=== PATIENT | male | born 1955 | race African-American/Black ===

== ENCOUNTER 2016-06-05 09:40 | Outpatient (CLI) | payer MEDICARE, OTHER ==
[2016-06-05 12:25] LABS: #Basophils 0.1 thou/uL (0.0-0.2); #Eosinphils 0.2 thou/uL (0.0-0.7); #Lymphocytes 1.7 thou/uL (1.20-3.40); #Monocytes 0.7 thou/uL (0.11-0.59); #Neutrophils 7.4 thou/uL (1.40-6.50); %Basophils 1.3 % (0.0-1.0); %Eosinophils 2.2 % (0.0-10.0); %Lymphocytes 16.8 % (21.0-51.0); %Monocytes 7.2 % (0.0-10.0); Hematocrit 46.6 % (42.0-52.0); Mean Platelet Volume 5.8 fL (7.4-10.4); White Blood Cell (WBC) Count 10.2 thou/uL (4.8-10.8)
[2016-06-05 12:27] LABS: Bilirubin Negative (Negative); Blood, Urine Negative (Negative); Glucose, Urine (Dipstick) Negative (Negative); Ketone, Urine Negative (Negative); Nitrite Negative (Negative); Protein, Urine (Dipstick) Negative (Neg-Trace)
[2016-06-05 12:40] LABS: ALT (SGPT) 12 U/L (0-55); AST (SGOT) 17 U/L (5-34); Alkaline Phosphatase 103 U/L (40-150); Anion Gap 17 mmol/L (10-20); BUN (Urea Nitrogen) 9 mg/dL (8.4-25.7); Bilirubin, Total 0.2 mg/dL (0.2-1.2); Calc. Creatinine Clearance 0 mL/min (70-130); Calcium 9.1 mg/dL (7.8-10.44); Carbon Dioxide 19 mmol/L (23-31); Chloride 107 mmol/L (98-107); Estimated GFR-MDRD 86; Globulin 3.4 g/dL (2.4-3.5); LDL Cholesterol, Calculated 57 mg/dL; Protein, Total 7.7 g/dL (5.8-8.1)
[2016-06-05 12:53] LABS: Hemoglobin A1c 5.5 % (4.0-6.0)
== END 2016-06-05 09:41 | disposition home or self-care (01) ==
LOC: NAVSJIPCSP 09:40
PROVIDERS: ATTEND Internal Medicine
DX: F17.200 Nicotine dependence, unspecified, uncomplicated (principal)
CPT/HCPCS: 36415; 80053; 80061; 81003; 83036; 84443; 85025

== ENCOUNTER 2017-12-10 09:28 | Emergency (ER) | payer MEDICARE, OTHER ==
--- NOTE | 2017-12-10 10:25 | RAD ---
CHEST 2 VIEWS: HISTORY: Cough. COMPARISON: 04/02/15. FINDINGS: Therosclerosis of the aorta. Normal cardiac silhouette. Th epulmonary vessels and hilum are normal. No consolidation or mass. No pneumothorax or osseous abnormalities. IMPRESSION: ATherosclerosis. no acute cardiopulmonary process. POS: [facility]
[2017-12-10 10:52] LABS: Anion Gap 16 mmol/L (10-20); BUN (Urea Nitrogen) 7 mg/dL (8.4-25.7); Calc. Creatinine Clearance 0 mL/min (70-130); Calcium 9.7 mg/dL (7.8-10.44); Carbon Dioxide 17 mmol/L (23-31); Chloride 104 mmol/L (98-107); Estimated GFR-MDRD Greater than 90; Glucose 207 mg/dL (80-115); Potassium 3.7 mmol/L (3.5-5.1); Sodium 133 mmol/L (136-145)
[2017-12-10 10:56] LABS: #Basophils 0.1 thou/uL (0.0-0.2); #Monocytes 1.1 thou/uL (0.11-0.59); #Neutrophils 14.3 thou/uL (1.40-6.50); %Basophils 0.8 % (0.0-1.0); %Eosinophils 0.1 % (0.0-10.0); %Lymphocytes 6.3 % (21.0-51.0); %Monocytes 6.7 % (0.0-10.0); %Neutrophils 86.1 % (42.0-75.0); Anisocytosis MODERATE=16-30 cells (100X) (0-5/hpf); Hemoglobin 6.9 g/dL (14.0-18.0); MDiff Complete? YES; Mean Corpuscular HGB CONC 27.7 g/dL (32.0-36.0); Mean Corpuscular Hemoglobin 17.4 pg (27.0-31.0); Mean Corpuscular Volume 62.9 fL (78.0-98.0); Mean Platelet Volume 6.5 fL (7.4-10.4); Microcytosis SLIGHT = 6-15 cells (100X) (0-5/hpf); Ovalocytes SLIGHT = 2-5 cells (100X) (0-1/hpf); PLT Morphology Comment Appears Adequate; Platelet Count 467 thou/uL (130-400); Poikilocytosis MODERATE=16-30 cells (100X) (0-5/hpf); RBC Distribution Width 17.7 % (11.5-14.5); Red Blood Cell (RBC) Count 3.97 mill/uL (4.70-6.10); White Blood Cell (WBC) Count 16.6 thou/uL (4.8-10.8)
--- NOTE | 2017-12-10 11:04 | RAD ---
2 VIEWS LUMBAR SPINE: Date: 12/10/17 HISTORY: Midline back pain. COMPARISON: None. FINDINGS: There are five lumbar-type vertebral bodies. Preservation of vertebral body height. No fracture. No s pondylolisthesis or spondylolysis. Atherosclerosis of aorta is noted. Mild degenerative changes in di stal thoracic spine. IMPRESSION: Unremarkable 2 views lumbar spine. POS: [facility]
[2017-12-10] MEDS ORDERED: Sodium Chloride 0.9% 1,000 ML ONE (12:08)
[2017-12-10 12:53] LABS: Bilirubin Negative (Negative); Blood, Urine Negative (Negative); Clarity Clear (Clear); Glucose, Urine (Dipstick) 100 mg/dL (Negative); Leukocyte Negative (Negative); Nitrite Negative (Negative); Protein, Urine (Dipstick) 30 mg/dL (Neg-Trace); Specific Gravity, Urine 1.015 (1.005-1.030); Urobilinogen 0.2 mg/dL (0.2-1.0)
[2017-12-10 13:07] LABS: Bacteria/HPF None Seen HPF (None Seen); RBC/HPF 0-3 HPF (0-3); Squamous Epithelial 0-3 HPF (0-3); WBC/HPF 0-3 HPF (0-3)
[2017-12-10] MEDS ORDERED: Sodium Chloride 0.9% 250 ML 250 ML ONE (13:22)
== END 2017-12-10 14:19 | disposition short-term general hospital (02) ==
LOC: NAV ERS 09:28
DX: M54.5 Low back pain (principal); D64.9 Anemia, unspecified; E11.9 Type 2 diabetes mellitus without complications; I10 Essential (primary) hypertension; M19.90 Unspecified osteoarthritis, unspecified site; F17.210 Nicotine dependence, cigarettes, uncomplicated; Z79.4 Long term (current) use of insulin; Z79.899 Other long term (current) drug therapy
CPT/HCPCS: 71046; 72100; 80048; 81003; 81015; 83605; 85025; 85652; 86140; 87040; 96365; 96367; 96375; J1956; J2270; J3370; J7050

== ENCOUNTER 2018-01-03 10:51 | Emergency (ER) | payer MEDICARE, OTHER ==
[~2018-01-03 10:51] MED LIST: Iopamidol 370 76% 100 ML VIAL ONE
[2018-01-03] MEDS ORDERED: Acetaminophen 325 MG TAB ONE (12:08)
[2018-01-03 12:24] LABS: Anisocytosis MARKED = >30 cells (100X) (0-5/hpf); Band 2 % (5-11); Eosinophils 1 % (0-10); Hemoglobin 10.6 g/dL (14.0-18.0); Hypochromia MODERATE=16-30 cells (100X) (0-5/hpf); Lymphocytes 11 % (21-51); MDiff Complete? YES; Mean Corpuscular HGB CONC 28.4 g/dL (32.0-36.0); Mean Corpuscular Hemoglobin 22.7 pg (27.0-31.0); Mean Corpuscular Volume 79.8 fL (78.0-98.0); Mean Platelet Volume 6.3 fL (7.4-10.4); Microcytosis SLIGHT = 6-15 cells (100X) (0-5/hpf); Monocytes 2 % (0-10); Neutrophil 84 % (42-75); Ovalocytes SLIGHT = 2-5 cells (100X) (0-1/hpf); Platelet Count 408 thou/uL (130-400); RBC Distribution Width 30.4 % (11.5-14.5); Red Blood Cell (RBC) Count 4.68 mill/uL (4.70-6.10); Reflex for Review?? NO; White Blood Cell (WBC) Count 12.4 thou/uL (4.8-10.8)
[2018-01-03 12:26] LABS: Bilirubin Negative (Negative); Blood, Urine Negative (Negative); Clarity Clear (Clear); Glucose, Urine (Dipstick) Negative (Negative); Leukocyte Negative (Negative); Nitrite Negative (Negative); Protein, Urine (Dipstick) Trace mg/dL (Neg-Trace); pH, Urine 6.5 (5.0-9.0)
[2018-01-03 12:29] LABS: ALT (SGPT) 11 U/L (8-55); AST (SGOT) 25 U/L (5-34); Albumin 4.1 g/dL (3.4-4.8); Alkaline Phosphatase 92 U/L (40-150); Anion Gap 15 mmol/L (10-20); BUN (Urea Nitrogen) 9 mg/dL (8.4-25.7); Bilirubin, Total 0.3 mg/dL (0.2-1.2); Calc. Creatinine Clearance 0 mL/min (70-130); Calcium 9.7 mg/dL (7.8-10.44); Carbon Dioxide 18 mmol/L (23-31); Chloride 103 mmol/L (98-107); Estimated GFR-MDRD Greater than 90; Globulin 4.1 g/dL (2.4-3.5); Glucose 136 mg/dL (80-115); Potassium 4.4 mmol/L (3.5-5.1); Protein, Total 8.2 g/dL (5.8-8.1); Sodium 132 mmol/L (136-145)
[2018-01-03 12:30] LABS: CKMB 0.6 ng/mL (0-6.6); Troponin I 0.033 ng/mL (< 0.028)
[2018-01-03] MEDS ORDERED: Sodium Chloride 0.9% 1,000 ML ONE (12:34)
--- NOTE | 2018-01-03 12:54 | RAD ---
CHEST 1 VIEW: HISTORY: Fever. COMPARISON: Chest radiograph 04/02/2015. FINDINGS: Lungs are clear. No pneumothorax or effusion. Cardiac silhouette and mediastinal contours are withi n normal limits. IMPRESSION: 1. No acute intrathoracic abnormality. 2. Nodular density projecting in the right mid lung is seen projecting over the posterior right 7th rib, likely a calcified granuloma. POS: [facility]
--- NOTE | 2018-01-03 13:45 | CT ---
CT ARTERIOGRAM CHEST WITH IV CONTRAST AND 3D MIP IMAGING: History Dyspnea. Chest pain. FINDINGS: There is good contrast opacification of the pulmonary arteries and thoracic aorta with bovine origin of the great vessels at the aortic arch. The lungs are hyperinflated. Calcified granulomata are con sistent with healed granulomatous disease. No pleural fluid or pneumothorax. Calcification within t he arterial structures. IMPRESSION: 1. No CT evidence of pulmonary embolus. 2. Chronic obstructive pulmonary disease. 3. Atherosclerosis. POS: [facility]
[2018-01-03] MEDS ORDERED: methylPREDNISolone Sod Succ/PF 125 MG/2 ML VIAL ONE (14:07)
[2018-01-03] MEDS ORDERED: cefTRIAXone\\ROCEPHIN 1 GM VIAL ONE (14:07)
[2018-01-03] MEDS ORDERED: Sodium Chloride 0.9% 100 ML ONE (14:07)
== END 2018-01-03 14:31 | disposition short-term general hospital (02) ==
LOC: NAV ERS 10:51
DX: J44.1 Chronic obstructive pulmonary disease with (acute) exacerbation (principal); R94.31 Abnormal electrocardiogram [ECG] [EKG]; E11.9 Type 2 diabetes mellitus without complications; I10 Essential (primary) hypertension; D64.9 Anemia, unspecified; F17.210 Nicotine dependence, cigarettes, uncomplicated; Z79.899 Other long term (current) drug therapy
CPT/HCPCS: 71045; 71275; 80053; 81003; 82553; 83605; 83880; 84484; 85025; 85379; 87040; 87086; 87804; 93005; 94640; 96361; 96365; 96375; J0696; J2930; J7050; J7620

== ENCOUNTER 2018-01-14 13:18 | Outpatient (CLI) | payer MEDICARE, MEDICAID ==
--- NOTE | 2018-01-14 15:07 | CT ---
CT ABDOMEN AND PELVIS WITH CONTRAST: Date: 01/14/18 HISTORY: Abdominal pain. COMPARISON: None. FINDINGS: Lung bases are clear. No pericardial effusion. There is some thickening of the proximal jejunum and l eft upper quadrant of the abdomen with some mucosal edema. There are no dilated loops of large or sma ll bowel. Contrast transits throughout nearly the entirety of the small bowel. Mild prominence left renal collecting system without overt hydronephrosis. No abnormal renal enhancin g mass. The liver, gallbladder, and spleen are unremarkable. Pancreas is unremarkable. Moderate atherosclerot ic plaque of the aortoiliac system without aneurysmal dilatation. Prostate appears to be enlarged. The appendix is visualized and is normal. No acute osseous abnormality. No suspicious lytic or blastic lesions. IMPRESSION: 1. Mild submucosal edema and thickening of the proximal small bowel, the jejunum, suggesting enterit is. 2. Normal appendix. 3. Mild, likely physiologic, left-sided low grade hydronephrosis without evidence of a calculus. POS: [facility]
== END 2018-01-14 13:19 | disposition home or self-care (01) ==
LOC: NAV CT 13:18
PROVIDERS: ATTEND Internal Medicine
DX: Z01.818 Encounter for other preprocedural examination (principal); E11.9 Type 2 diabetes mellitus without complications; K21.9 Gastro-esophageal reflux disease without esophagitis; D50.8 Other iron deficiency anemias; K63.89 Other specified diseases of intestine
CPT/HCPCS: 36415; 74177; 82565

== ENCOUNTER 2018-11-12 13:38 | Emergency (ER) | payer OTHER ==
[2018-11-12] MEDS ORDERED: Ketorolac Tromethamine 60 MG/2 ML VIAL ONE (14:03)
[2018-11-12 14:25] LABS: #Basophils 0.1 thou/uL (0.0-0.2); #Eosinphils 0.1 thou/uL (0.0-0.7); #Monocytes 0.7 thou/uL (0.11-0.59); #Neutrophils 12.7 thou/uL (1.40-6.50); %Basophils 0.8 % (0.0-1.0); %Eosinophils 0.9 % (0.0-10.0); %Monocytes 4.9 % (0.0-10.0); %Neutrophils 86.4 % (42.0-75.0); Hemoglobin 13.5 g/dL (14.0-18.0); Mean Corpuscular HGB CONC 33.4 g/dL (32.0-36.0); Mean Corpuscular Hemoglobin 31.4 pg (27.0-31.0); Mean Corpuscular Volume 94.1 fL (78.0-98.0); Mean Platelet Volume 6.3 fL (7.4-10.4); Platelet Count 326 thou/uL (130-400); RBC Distribution Width 14.2 % (11.5-14.5); Red Blood Cell (RBC) Count 4.29 mill/uL (4.70-6.10); White Blood Cell (WBC) Count 14.6 thou/uL (4.8-10.8)
[2018-11-12 14:40] LABS: Anion Gap 16 mmol/L (10-20); BUN (Urea Nitrogen) 8 mg/dL (8.4-25.7); Calc. Creatinine Clearance 0 mL/min (70-130); Carbon Dioxide 22 mmol/L (23-31); Chloride 102 mmol/L (98-107); Estimated GFR-MDRD 70; Glucose 222 mg/dL (80-115); Potassium 3.8 mmol/L (3.5-5.1); Sodium 136 mmol/L (136-145); Uric Acid 4.6 mg/dL (3.5-7.2)
--- NOTE | 2018-11-12 15:40 | RAD ---
LEFT WRIST THREE VIEW: 11/12/18 HISTORY: Wrist swelling and pain. COMPARISON: None. FINDINGS: There is some ossification of the lunatotriquetral ligament. Advanced degenerative disease of the sca [id number]-lxfhezhud-ydqbjpjwksy joint. No acute fracture. Mild radiocarpal joint space narrowing. There is degenerative disease of the thumb interphalangeal karma int. IMPRESSION: 1. Chronic findings. No acute osseous abnormality. 2. Calcium pyrophosphate deposition disease. POS: [facility]
== END 2018-11-12 15:03 | disposition home or self-care (01) ==
LOC: NAV ERS 13:38
DX: M11.80 Other specified crystal arthropathies, unspecified site (principal); E11.9 Type 2 diabetes mellitus without complications; I10 Essential (primary) hypertension; D64.9 Anemia, unspecified; M19.90 Unspecified osteoarthritis, unspecified site; F17.210 Nicotine dependence, cigarettes, uncomplicated; Z79.899 Other long term (current) drug therapy; Z79.84 Long term (current) use of oral hypoglycemic drugs
CPT/HCPCS: 80048; 84550; 85025; 96372; J1885

== ENCOUNTER 2019-01-04 16:41 | Emergency (ER) | payer OTHER ==
[2019-01-04] MEDS ORDERED: methylPREDNISolone Sod Succ/PF 125 MG/2 ML VIAL ONE (17:01)
[2019-01-04 17:30] LABS: #Basophils 0.1 thou/uL (0.0-0.2); #Eosinphils 0.1 thou/uL (0.0-0.7); #Lymphocytes 1.2 thou/uL (1.20-3.40); #Monocytes 0.8 thou/uL (0.11-0.59); #Neutrophils 10.6 thou/uL (1.40-6.50); %Basophils 0.7 % (0.0-1.0); %Eosinophils 0.6 % (0.0-10.0); %Lymphocytes 9.4 % (21.0-51.0); %Monocytes 6.2 % (0.0-10.0); %Neutrophils 83.1 % (42.0-75.0); Mean Corpuscular HGB CONC 32.5 g/dL (32.0-36.0); Mean Corpuscular Volume 95.1 fL (78.0-98.0); Mean Platelet Volume 6.8 fL (7.4-10.4); Platelet Count 260 thou/uL (130-400); RBC Distribution Width 13.4 % (11.5-14.5); White Blood Cell (WBC) Count 12.8 thou/uL (4.8-10.8)
--- NOTE | 2019-01-04 17:37 | RAD ---
XR Chest Pa Lat STANDARD History: Cold and flulike symptoms Comparison: Chest radiograph January 03, 2018 Findings: Calcified granuloma projecting over the right midlung. The lungs are hyperinflated. No pneu mothorax. No effusion. No confluent airspace consolidation. No acute osseous abnormality. Impression: No acute intrathoracic abnormality. Lung hyperinflation suggesting obstructive pulmonary disease.
[2019-01-04 17:41] LABS: Anion Gap 17 mmol/L (10-20); BUN (Urea Nitrogen) 6 mg/dL (8.4-25.7); Calc. Creatinine Clearance 0 mL/min (70-130); Calcium 9.4 mg/dL (7.8-10.44); Carbon Dioxide 23 mmol/L (23-31); Chloride 102 mmol/L (98-107); Estimated GFR-MDRD Greater than 90; Glucose 124 mg/dL (80-115); Potassium 3.7 mmol/L (3.5-5.1); Sodium 138 mmol/L (136-145)
== END 2019-01-04 18:40 | disposition home or self-care (01) ==
LOC: NAV ERS 16:41
DX: J44.1 Chronic obstructive pulmonary disease with (acute) exacerbation (principal); E11.9 Type 2 diabetes mellitus without complications; I10 Essential (primary) hypertension; D64.9 Anemia, unspecified; M19.90 Unspecified osteoarthritis, unspecified site; F17.210 Nicotine dependence, cigarettes, uncomplicated; Z79.899 Other long term (current) drug therapy; Z79.84 Long term (current) use of oral hypoglycemic drugs
CPT/HCPCS: 71046; 80048; 83880; 84484; 85025; 87804; 93005; 94640; 94760; J2930; J7620

== ENCOUNTER 2019-04-04 10:01 | Emergency (ER) | payer OTHER | END 2019-04-04 11:10 | disposition home or self-care (01) | LOC: NAV ERS 10:01 | DX: M19.032 Primary osteoarthritis, left wrist (principal); E11.9 Type 2 diabetes mellitus without complications; I10 Essential (primary) hypertension; D64.9 Anemia, unspecified; M10.9 Gout, unspecified; F17.210 Nicotine dependence, cigarettes, uncomplicated; Z79.51 Long term (current) use of inhaled steroids; Z79.52 Long term (current) use of systemic steroids | CPT/HCPCS: 99283 ==

== ENCOUNTER 2021-11-13 10:48 | Emergency (ER) | payer OTHER ==
[2021-11-13] MEDS ORDERED: methylPREDNISolone Sod Succ/PF 125 MG/2 ML VIAL ONE (11:17)
[2021-11-13 11:51] LABS: ALT (SGPT) 11 U/L (8-55); AST (SGOT) 24 U/L (5-34); Albumin 4.2 g/dL (3.4-4.8); Alkaline Phosphatase 97 U/L (40-110); Anion Gap 18 mmol/L (10-20); BUN (Urea Nitrogen) 13 mg/dL (8.4-25.7); Bilirubin, Total 0.2 mg/dL (0.2-1.2); Calc. Creatinine Clearance 0 mL/min (70-130); Calcium 9.2 mg/dL (7.8-10.44); Carbon Dioxide 19 mmol/L (23-31); Chloride 99 mmol/L (98-107); Estimated GFR 87; Globulin 3.6 g/dL (2.4-3.5); Potassium 3.8 mmol/L (3.5-5.1); Protein, Total 7.8 g/dL (5.8-8.1); Sodium 132 mmol/L (136-145)
[2021-11-13 11:54] LABS: #Basophils 0.1 thou/uL (0.0-0.2); #Lymphocytes 0.9 thou/uL (1.20-3.40); #Monocytes 0.7 thou/uL (0.11-0.59); %Basophils 0.8 % (0.0-1.0); %Eosinophils 0.1 % (0.0-10.0); %Lymphocytes 8.4 % (21.0-51.0); %Monocytes 6.6 % (0.0-10.0); %Neutrophils 84.1 % (42.0-75.0); Mean Corpuscular HGB CONC 26.4 g/dL (32.0-36.0); Mean Corpuscular Hemoglobin 17.5 pg (27.0-31.0); Mean Corpuscular Volume 66.3 fL (78.0-98.0); Mean Platelet Volume 7.5 fL (7.4-10.4); Platelet Count 283 thou/uL (130-400); RBC Distribution Width 20.1 % (11.5-14.5); Red Blood Cell (RBC) Count 2.96 mill/uL (4.70-6.10); White Blood Cell (WBC) Count 10.7 thou/uL (4.8-10.8)
[2021-11-13 11:58] LABS: Hemoglobin 5.2 g/dL (14.0-18.0)
[2021-11-13 12:06] LABS: Anisocytosis MODERATE=16-30 cells (100X) (0-5/hpf); Hypochromia MARKED = >30 cells (100X) (0-5/hpf); MDiff Complete? YES; Microcytosis MODERATE=15-30 cells (100X) (0-5/hpf); Ovalocytes SLIGHT = 2-5 cells (100X) (0-1/hpf); Platelet Morphology Comment Appears Adequate; Poikilocytosis MODERATE=16-30 cells (100X) (0-5/hpf); Reflex for Review?? NO
[2021-11-13 12:09] LABS: Glucose 25 mg/dL (80-115)
[2021-11-13 16:21] LABS: Hemoglobin 7.4 g/dL (14.0-18.0)
== END 2021-11-13 17:02 | disposition home or self-care (01) ==
LOC: NAV ERS 10:48
DX: J44.1 Chronic obstructive pulmonary disease with (acute) exacerbation (principal); D64.9 Anemia, unspecified; E11.649 Type 2 diabetes mellitus with hypoglycemia without coma; I10 Essential (primary) hypertension; F17.210 Nicotine dependence, cigarettes, uncomplicated; Z79.899 Other long term (current) drug therapy
CPT/HCPCS: 36416; 36430; 71045; 80053; 83880; 84484; 85025; 86850; 86900; 86901; 93005; 94640; 94760; 96374; J2930; J7620; P9016

== ENCOUNTER 2022-12-08 18:31 | Emergency (ER) | payer OTHER ==
[2022-12-08] MEDS ORDERED: predniSONE 20 MG TAB ONE (19:11)
[2022-12-08] MEDS ORDERED: Ipratropium/Albuterol 3 ML NEB ONE (19:11)
== END 2022-12-08 19:45 | disposition home or self-care (01) ==
LOC: NAV ERS 18:31
DX: J44.1 Chronic obstructive pulmonary disease with (acute) exacerbation (principal); I10 Essential (primary) hypertension; F17.210 Nicotine dependence, cigarettes, uncomplicated; E11.9 Type 2 diabetes mellitus without complications; Z79.84 Long term (current) use of oral hypoglycemic drugs; Z79.899 Other long term (current) drug therapy
CPT/HCPCS: 71045; J7512; J7620